=== PATIENT | male | born 1960 | race African-American/Black ===

== ENCOUNTER 2017-05-10 19:20 | Emergency (ER) | payer OTHER ==
[~2017-05-10 19:20] MED LIST: DICL75 PO; METH500T3 PO; NAPR-571 PO; NAPR550 PO; OXYC-360 PO; OXYC5 PO; ROBA750T3 PO
[2017-05-10 19:21] VITALS: BP 113/72; PULSE 112; RESP 16; TEMP 98.8; O2SAT 96
[2017-05-10] MEDS ORDERED: SODIUM CHLOR 0.9% 1000 ML INJ 1,000 ML IV SCH ×4 (19:47→23:03)
[2017-05-10] MEDS ORDERED: LANTUS2P SQ (19:49)
[2017-05-10] MEDS ORDERED: BLOOD PRESSURE (19:49)
--- NOTE | 2017-05-10 19:50 | PD ---
HPI Chief Complaint: Diabetic Time Seen by Provider: 19:50 Travel History International Travel<30 days: No Contact w/Intl Traveler<30days: No Traveled to known affect area: No History of Present Illness HPI 56-year-old male with a history of diabetes presents to the emergency department for evaluation of hyperglycemia. The patient states that 2 weeks ago he was changed from metformin to insulin for his diabetes. States that he went to the [place] today for a follow-up appointment to have blood work and was called and told to come immediately to the ED for elevated blood sugar. The patient states that he does not check his blood sugar regularly, he last checked his own blood sugar 2 weeks ago and it was around 300. States that he is currently taking regular insulin 10 units in the afternoon. States that he is currently on vacation and has been eating poorly with a lot of soda and candy. The patient states that earlier this week he was experiencing a cough with bloody sputum. States that the last time he had hemoptysis was 3 days ago , he has had none since then. He states he feels as though whenever he was coughing has cleared. He denies any chest pain, shortness of breath, difficulty breathing, lightheadedness, dizziness, nausea, vomiting, diarrhea, abdominal pain. No other complaints. PFSH Past Medical History Blood Disorders: No Diabetes: Yes Patient Takes Glucophage: No Hypertension: Yes Tetanus Vaccination: < 5 Years Influenza Vaccination: Yes Past Surgical History Appendectomy: Yes Other Surgery: Yes ([facility]) Social History Alcohol Use: Yes Tobacco Use: Yes Substance Use: No Allergies-Medications (Allergen,Severity, Reaction): Coded Allergies: No Known Allergies (Verified , 05/10/17) Reported Meds & Prescriptions Reported Meds & Active Scripts Active Reported [Blood Pressure] Lantus Inj (Insulin Glargine) 1,000 Unit/10 Ml Vial 10 Units SQ AT 1500 Review of Systems Except as stated in HPI: all other systems reviewed are Neg Physical Exam Narrative GENERAL: Well-nourished and well-developed pleasant patient in no acute distress who is nontoxic appearing. SKIN: Warm and dry. HEAD: Normocephalic and atraumatic. EYES: No injection, drainage, or hyphema noted. PERRLA. EOMI. ENT: No nasal drainage noted. Oropharynx is clear. NECK: Supple and the trachea is midline. CARDIOVASCULAR: Regular rate and rhythm. RESPIRATORY: Breath sounds are equal bilaterally with no accessory muscle use, wheezing, rhonchi, or crackles. GASTROINTESTINAL: Abdomen is soft, non-tender, and nondistended. MUSCULOSKELETAL: No obvious deformities, swelling, cyanosis, or ecchymosis is present throughout the upper and lower extremities. Patient has full range of motion without any signs of neurovascular compromise. NEUROLOGICAL: Awake, alert, and oriented. Normal speech and gait. Cranial nerves are grossly intact. Data Data Last Documented VS Vital Signs Date Time Temp Pulse Resp B/P Pulse Ox O2 Delivery O2 Flow Rate FiO2 05/11/17 02:10 89 14 122/74 98 Room Air 05/10/17 19:21 98.8 Orders Complete Blood Count With Diff (05/10/17 19:47) Comprehensive Metabolic Panel (05/10/17 19:47) Urinalysis - C+S If Indicated (05/10/17 19:47) Iv Access Insert/Monitor (05/10/17 19:47) Ecg Monitoring (05/10/17 19:47) Oximetry (05/10/17 19:47) Sodium Chlor 0.9% 1000 Ml Inj (Ns 1000 M (05/10/17 19:47) Sodium Chloride 0.9% Flush (Ns Flush) (05/10/17 20:00) Electrocardiogram (05/10/17 19:47) Chest, Single Ap (05/10/17 19:52) Sodium Chlor 0.9% 1000 Ml Inj (Ns 1000 M (05/10/17 20:42) Sodium Chlor 0.9% 1000 Ml Inj (Ns 1000 M (05/10/17 20:59) Insulin Human Regular Inj (Novolin R Inj (05/10/17 21:00) Comprehensive Metabolic Panel (05/10/17 21:50) Insulin Human Regular Inj (Novolin R Inj (05/10/17 23:15) Sodium Chlor 0.9% 1000 Ml Inj (Ns 1000 M (05/10/17 23:03) Labs Laboratory Tests Test 05/10/17 05/10/17 05/10/17 20:00 22:03 23:30 White Blood Count 7.1 TH/MM3 Red Blood Count 4.35 MIL/MM3 Hemoglobin 14.2 GM/DL Hematocrit 41.8 % Mean Corpuscular Volume 96.2 FL Mean Corpuscular Hemoglobin 32.6 PG Mean Corpuscular Hemoglobin 34.0 % Concent Red Cell Distribution Width 13.4 % Platelet Count 257 TH/MM3 Mean Platelet Volume 8.5 FL Neutrophils (%) (Auto) 66.0 % Lymphocytes (%) (Auto) 24.3 % Monocytes (%) (Auto) 8.1 % Eosinophils (%) (Auto) 0.7 % Basophils (%) (Auto) 0.9 % Neutrophils # (Auto) 4.7 TH/MM3 Lymphocytes # (Auto) 1.7 TH/MM3 Monocytes # (Auto) 0.6 TH/MM3 Eosinophils # (Auto) 0.1 TH/MM3 Basophils # (Auto) 0.1 TH/MM3 CBC Comment DIFF FINAL Differential Comment Sodium Level 132 MEQ/L 139 MEQ/L Potassium Level 4.5 MEQ/L 4.0 MEQ/L Chloride Level 95 MEQ/L 104 MEQ/L Carbon Dioxide Level 22.6 MEQ/L 24.3 MEQ/L Anion Gap 14 MEQ/L 11 MEQ/L Blood Urea Nitrogen 25 MG/DL 24 MG/DL Creatinine 1.91 MG/DL 1.52 MG/DL Estimat Glomerular Filtration 45 ML/MIN 58 ML/MIN Rate Random Glucose 581 MG/DL 407 MG/DL Calcium Level 9.3 MG/DL 8.0 MG/DL Total Bilirubin 0.4 MG/DL 0.2 MG/DL Aspartate Amino Transf 42 U/L 22 U/L (AST/SGOT) Alanine Aminotransferase 37 U/L 34 U/L (ALT/SGPT) Alkaline Phosphatase 68 U/L 58 U/L Total Protein 7.1 GM/DL 5.7 GM/DL Albumin 3.6 GM/DL 2.9 GM/DL Urine Color LIGHT-YELLOW Urine Turbidity CLEAR Urine pH 5.0 Urine Specific Dickinson 1.021 Urine Protein NEG mg/dL Urine Glucose (UA) 1000 mg/dL Urine Ketones NEG mg/dL Urine Occult Blood NEG Urine Nitrite NEG Urine Bilirubin NEG Urine Urobilinogen LESS THAN 2.0 MG/DL Urine Leukocyte Esterase NEG Urine RBC 1 /hpf Urine WBC 1 /hpf Urine Squamous Epithelial <1 /hpf Cells Urine Hyaline Casts 1 /lpf Urine Mucus FEW /lpf Microscopic Urinalysis Comment CULT NOT INDICATED MDM Medical Decision Making Medical Screen Exam Complete: Yes Emergency Medical Condition: Yes Differential Diagnosis Hyperglycemia versus dehydration versus electrolyte abnormality Narrative Course 56-year-old male with a history of diabetes presents to the emergency department for evaluation of hyperglycemia. Patient is afebrile. He is tachycardic with a heart rate of 112 bpm. Otherwise vital signs within normal limits. He has no medical complaints. Physical examination is unremarkable. He does state that several days ago he had hemoptysis but this has since resolved. He is having no chest pain or shortness of breath and therefore I do not suspect any blood clot. IV access was obtained, labs drawn and sent. Patient is placed on cardiac telemetry and pulse oximetry monitoring. Patient is administered IV fluids. CBC is unremarkable. CMP shows renal insufficiency with a creatinine of 1.91, BUN 25, GFR 45. No prior for comparison. Hyperglycemia with glucose of 581. Potassium is noted to be 4.5 with slight hemolysis. Patient is administered 3 L of IV fluid and 10 units of regular insulin subcutaneously. We will recheck his CMP at one hour. Repeat CMP shows improved renal function 2 creatinine 1.52, BUN 24, GFR 58. Glucose is improved to 407. Potassium is 4.0. I discussed case with my attending physician Dr. Tiwari who recommends a fourth liter of fluid and 10 more units of insulin SQ. She will follow-up on the patient's urinalysis and repeat glucose. If his sugar as continued to improve and he's able to urinate without difficulty he can be discharged to home. Diagnosis Primary Impression: Hyperglycemia Additional Impressions: Dehydration Noncompliance with dietary restriction Janet Peterson May 10, 2017 19:50
[2017-05-10 19:55] VITALS: O2SAT 95
[2017-05-10] MEDS ORDERED: SODIUM CHLORIDE 0.9% FLUSH 10 ML FLUSH IV FLUSH PRN (20:00)
--- NOTE | 2017-05-10 20:14 | RADRPT ---
EXAM DATE/TIME: 05/10/2017 19:48 [facility] COMPARISON: No previous studies available for comparison. INDICATIONS : Cough MEDICAL HISTORY : Hypertension. SURGICAL HISTORY : None. ENCOUNTER: Initial ACUITY: 2 weeks PAIN SCORE: 0/10 LOCATION: Bilateral chest FINDINGS: A single view of the chest demonstrates the lungs to be symmetrically aerated without evidence of mas s, infiltrate or effusion. The cardiomediastinal contours are unremarkable. Osseous structures are intact. There are overlying electrocardiogram leads. CONCLUSION: No acute disease. Trevor Dos Santos MD on May 10, 2017 at 20:08 Board Certified Radiologist. This report was verified electronically.
[2017-05-10 20:19] LABS: AUTOMATED NEUTROPHIL # 4.7 TH/MM3 (1.8-7.7); BASOPHIL # 0.1 TH/MM3 (0-0.2); BASOPHIL % 0.9 % (0.0-2.0); EOSINOPHIL # 0.1 TH/MM3 (0-0.4); EOSINOPHIL % 0.7 % (0.0-4.0); HEMATOCRIT 41.8 % (39.0-51.0); HEMO FLAGS DIFF FINAL; LYMPH % 24.3 % (9.0-44.0); LYMPHOCYTE # 1.7 TH/MM3 (1.0-4.8); MEAN CELL VOLUME 96.2 FL (80.0-100.0); MEAN CORPUSCULAR HEMOGLOBIN 32.6 PG (27.0-34.0); MONO % 8.1 % (0.0-8.0); PLATELET COUNT 257 TH/MM3 (150-450); RED BLOOD COUNT 4.35 MIL/MM3 (4.50-5.90); RED CELL DISTRIBUTION WIDTH 13.4 % (11.6-17.2); WHITE BLOOD COUNT 7.1 TH/MM3 (4.0-11.0)
[2017-05-10 20:44] LABS: ALKALINE PHOSPHATASE 68 U/L (45-117); ALT (GPT) 37 U/L (12-78); ANION GAP 14 MEQ/L (5-15); AST (GOT) 42 U/L (15-37); BICARBONATE 22.6 MEQ/L (21.0-32.0); BLOOD UREA NITROGEN 25 MG/DL (7-18); CHLORIDE 95 MEQ/L (98-107); GLOMERULAR FILTRATION RATE 45 ML/MIN (>89); SODIUM (NA) 132 MEQ/L (136-145); TOTAL BILIRUBIN ADULT 0.4 MG/DL (0.2-1.0)
[2017-05-10 20:45] LABS: POTASSIUM 4.5 MEQ/L (3.5-5.1)
[2017-05-10 21:00] VITALS: BP 110/76; PULSE 114; RESP 14; O2SAT 100
[2017-05-10] MEDS ORDERED: INSULIN HUMAN REGULAR 1,000 UNITS/10 ML VIAL SQ ONE ×2 (21:00→23:15)
[2017-05-10 22:10] VITALS: BP 132/82; PULSE 111; RESP 14; O2SAT 99
[2017-05-10 22:52] LABS: ALKALINE PHOSPHATASE 58 U/L (45-117); ALT (GPT) 34 U/L (12-78); ANION GAP 11 MEQ/L (5-15); AST (GOT) 22 U/L (15-37); BICARBONATE 24.3 MEQ/L (21.0-32.0); BLOOD UREA NITROGEN 24 MG/DL (7-18); CHLORIDE 104 MEQ/L (98-107); GLOMERULAR FILTRATION RATE 58 ML/MIN (>89); SODIUM (NA) 139 MEQ/L (136-145); TOTAL BILIRUBIN ADULT 0.2 MG/DL (0.2-1.0)
[2017-05-10 23:20] VITALS: BP 116/70; PULSE 108; RESP 18; O2SAT 100
[2017-05-10 23:59] LABS: BLOOD, URINE NEG (NEG); COMMENT (UR) CULT NOT INDICATED; CULTURE IF INDICATED CULT NOT INDICATED; GLUCOSE,URINE 1000 mg/dL (NEG); HYALINE CAST, URINE 1 /lpf (RARE); KETONE, URINE NEG (NEG); MUCUS URINE FEW /lpf (OCC); NITRITE,URINE NEG (NEG); SQUAMOUS EPITHELIAL CELL URINE <1 /hpf (0-5); URINE COLOR LIGHT-YELLOW (YELLW/STRAW)
[2017-05-11 00:30] VITALS: BP 126/70; PULSE 98; RESP 16; O2SAT 97
[2017-05-11 01:00] VITALS: BP 118/78; PULSE 92; RESP 14; O2SAT 99
[2017-05-11 02:10] VITALS: BP 122/74; PULSE 89; RESP 14; O2SAT 98
--- NOTE | 2017-05-11 02:11 | PD ---
Physical Exam Date Seen by Provider: May 11, 2017 Time Seen by Provider: 02:09 Narrative 56-year-old male who has history of diabetes came to the emergency room for generalized weakness and not feeling well. He is a poorly compliant diabetic with his medications and diet. His blood sugar was more than 500 initially when he came in. However the blood test did not show any DKA. He was given insulin subcutaneous followed by 2 L of IV fluid and recheck of the blood test. The sugar had come down to 420 at this point. He was given 2 more liters of IV fluid and another 10 units of insulin subcutaneous. At this point his blood sugar is 140. Rest of the workup is within acceptable limits. He was seen by the PA initially and I was supervising her and the case was signed over to me since she was leaving. I'm comfortable discharging him home. It would be stressed upon him to be compliant with his management for the diabetes. Data Data Last Documented VS Orders Complete Blood Count With Diff (05/10/17 19:47) Comprehensive Metabolic Panel (05/10/17 19:47) Urinalysis - C+S If Indicated (05/10/17 19:47) Iv Access Insert/Monitor (05/10/17 19:47) Ecg Monitoring (05/10/17 19:47) Oximetry (05/10/17 19:47) Sodium Chlor 0.9% 1000 Ml Inj (Ns 1000 M (05/10/17 19:47) Sodium Chloride 0.9% Flush (Ns Flush) (05/10/17 20:00) Electrocardiogram (05/10/17 19:47) Chest, Single Ap (05/10/17 19:52) Sodium Chlor 0.9% 1000 Ml Inj (Ns 1000 M (05/10/17 20:42) Sodium Chlor 0.9% 1000 Ml Inj (Ns 1000 M (05/10/17 20:59) Insulin Human Regular Inj (Novolin R Inj (05/10/17 21:00) Comprehensive Metabolic Panel (05/10/17 21:50) Insulin Human Regular Inj (Novolin R Inj (05/10/17 23:15) Sodium Chlor 0.9% 1000 Ml Inj (Ns 1000 M (05/10/17 23:03) Labs MDM Supervised Visit with JEANINE: Yes Diagnosis Primary Impression: Hyperglycemia Additional Impressions: Noncompliance with dietary restriction Dehydration Referrals: Primary Care Physician Additional Instruction: Please take your diabetes medications like is supposed to. Your diet should be straight and mainly sugar-free. Follow-up with your primary care in couple days. Return to the ER if the condition worsens or any other new concerns. Med/Other Pt SpecificInfo: No Change to Meds Disposition: 01 DISCHARGE HOME Condition: Stable Esperanza Tiwari MD May 11, 2017 02:11 Hemoglobin 14.2 GM/DL Hematocrit 41.8 % Mean Corpuscular Volume 96.2 FL Mean Corpuscular Hemoglobin 32.6 PG Mean Corpuscular Hemoglobin 34.0 % Concent Red Cell Distribution Width 13.4 % Platelet Count 257 TH/MM3 Mean Platelet Volume 8.5 FL Neutrophils (%) (Auto) 66.0 % Lymphocytes (%) (Auto) 24.3 % Monocytes (%) (Auto) 8.1 % Eosinophils (%) (Auto) 0.7 % Basophils (%) (Auto) 0.9 % Neutrophils # (Auto) 4.7 TH/MM3 Lymphocytes # (Auto) 1.7 TH/MM3 Monocytes # (Auto) 0.6 TH/MM3 Eosinophils # (Auto) 0.1 TH/MM3 Basophils # (Auto) 0.1 TH/MM3 CBC Comment DIFF FINAL Differential Comment Sodium Level 132 MEQ/L 139 MEQ/L Potassium Level 4.5 MEQ/L 4.0 MEQ/L Chloride Level 95 MEQ/L 104 MEQ/L Carbon Dioxide Level 22.6 MEQ/L 24.3 MEQ/L Anion Gap 14 MEQ/L 11 MEQ/L Blood Urea Nitrogen 25 MG/DL 24 MG/DL Creatinine 1.91 MG/DL 1.52 MG/DL Estimat Glomerular Filtration 45 ML/MIN 58 ML/MIN Rate Random Glucose 581 MG/DL 407 MG/DL Calcium Level 9.3 MG/DL 8.0 MG/DL Total Bilirubin 0.4 MG/DL 0.2 MG/DL Aspartate Amino Transf 42 U/L 22 U/L (AST/SGOT) Alanine Aminotransferase 37 U/L 34 U/L (ALT/SGPT) Alkaline Phosphatase 68 U/L 58 U/L Total Protein 7.1 GM/DL 5.7 GM/DL Albumin 3.6 GM/DL 2.9 GM/DL Urine Color LIGHT-YELLOW Urine Turbidity CLEAR Urine pH 5.0 Urine Specific [place] 1.021 Urine Protein NEG mg/dL Urine Glucose (UA) 1000 mg/dL Urine Ketones NEG mg/dL Urine Occult Blood NEG Urine Nitrite NEG Urine Bilirubin NEG Urine Urobilinogen LESS THAN 2.0 MG/DL Urine Leukocyte Esterase NEG Urine RBC 1 /hpf Urine WBC 1 /hpf Urine Squamous Epithelial <1 /hpf Cells Urine Hyaline Casts 1 /lpf Urine Mucus FEW /lpf Microscopic Urinalysis Comment CULT NOT INDICATED MDM Supervised Visit with JEANINE: Yes Diagnosis Primary Impression: Hyperglycemia Additional Impressions: Noncompliance with dietary restriction Dehydration Referrals: Primary Care Physician Additional Instruction: Please take your diabetes medications like is supposed to. Your diet should be straight and mainly sugar-free. Follow-up with your primary care in couple days. Return to the ER if the condition worsens or any other new concerns. Med/Other Pt SpecificInfo: No Change to Meds Disposition: 01 DISCHARGE HOME Condition: Stable Esperanza Tiwari MD May 11, 2017 02:11
--- NOTE | 2017-05-11 16:09 | EKG ---
Date Performed: 05/10/2017 Time Performed: 19:51:14 PTAGE: 56 years EKG: SINUS TACHYCARDIA MODERATE T-WAVE ABNORMALITY, CONSIDER LATERAL ISCHEMIA MODERATE T-WAVE AB NORMALITY, CONSIDER INFERIOR ISCHEMIA ABNORMAL ECG NO PREVIOUS TRACING DOCTOR: Estrella Bocanegra Interpretating Date/Time 05/11/2017 16:08:30
== END 2017-05-11 02:24 | disposition home or self-care (01) ==
LOC: NEPE 19:20
DX: E11.65 Type 2 diabetes mellitus with hyperglycemia (principal); E86.0 Dehydration; Z91.11 Patient's noncompliance with dietary regimen; R05 Cough; R00.0 Tachycardia, unspecified; I10 Essential (primary) hypertension; Z72.0 Tobacco use; Z79.4 Long term (current) use of insulin; R94.31 Abnormal electrocardiogram [ECG] [EKG]
CPT/HCPCS: 71010; 80053; 81001; 85025; 93005; 96372; 99285; J1815; J7030